=== PATIENT | female | born 1950 | race Two or more races ===

== ENCOUNTER 2017-04-13 22:31 | Emergency (ER) | payer MEDICAID, MEDICARE ==
[~2017-04-13] VITALS: Ht 162.6 cm; Wt 104.3 kg
[2017-04-13 23:32] LABS: Basophils # (auto) 0.1 uL; Basophils % (auto) 0.6 % (0.0-2.0); Eosinophils # (auto) 0.2 uL; Eosinophils % (auto) 2.2 % (0.0-7.0); Hematocrit 40.6 % (36.0-46.0); Hemoglobin 13.6 g/dL (12.2-16.2); Lymphocytes # (auto) 3.5 uL; Lymphocytes % (auto) 38.1 % (10.0-50.0); Mean Corpuscular Hemoglobin 28.7 pg (28.0-32.0); Mean Corpuscular Hgb Conc. 33.4 g/dL (32.0-36.0); Mean Platelet Volume 7.1 fL (7.4-10.4); Monocytes # (auto) 0.7 uL; Monocytes % (auto) 7.2 % (0.0-12.0); Neutrophils # (auto) 4.7 uL; Neutrophils % (auto) 51.9 % (37.0-80.0); Platelet Count (auto) 308 10^3/uL (140-450); Red Cell Distribution Width 13.6 % (11.6-16.0); White Blood Cell 9.2 10^3/uL (4.4-10.8)
[2017-04-13 23:51] LABS: Albumin 3.1 g/dL (3.4-5.0); Anion Gap 11 (5-15); Aspartate Aminotransferase 27 U/L (15-37); BUN/Creatinine Ratio 10.2; Blood Urea Nitrogen 9 mg/dL (7-18); Calcium 8.4 mg/dL (8.5-10.1); Carbon Dioxide 25 mmol/L (21-32); Chloride 106 mmol/L (98-107); GFR African American 83 mL/min; GFR Non-African American 68 mL/min; Glucose 146 mg/dL (74-106); Magnesium 2.1 mg/dL (1.6-2.6); Potassium 3.8 mmol/L (3.5-5.1); Sodium 142 mmol/L (136-145)
[2017-04-13 23:56] LABS: Alkaline Phosphatase 93 U/L (45-117); Bilirubin, Total 0.5 mg/dL (0.2-1.0); Total Protein 7.6 g/dL (6.4-8.2)
[2017-04-14 00:14] LABS: B-Type Natriuretic Peptide 6.58 pg/mL (0-100)
[2017-04-14 00:16] LABS: Temperature: 23.3 C (20.0-25.0)
[2017-04-14 05:38] LABS: Urine Bilirubin Negative (Negative); Urine Blood Negative /uL (Negative); Urine Color Yellow (Yellow); Urine Glucose Normal (Normal); Urine Ketone Negative (Negative); Urine Mucus FEW (None Seen); Urine Nitrite Negative (Negative); Urine RBC <1 /hpf (0 - 4); Urine Squamous Epithelial Cell FEW /hpf (<5); Urine Urobilinogen Normal (Negative)
[2017-04-14 09:45] VITALS: BP 137/74
== END 2017-04-14 09:58 | disposition home or self-care (01) ==
LOC: ER 22:31
DX: N39.0 Urinary tract infection, site not specified (principal)
CPT/HCPCS: 36415; 71020; 74176; 80053; 81001; 83690; 83735; 83880; 84484; 85025; 93005

== ENCOUNTER 2018-02-11 21:53 | Emergency (ER) | payer MEDICARE ==
[~2018-02-11] VITALS: Ht 162.6 cm; Wt 98.0 kg
[2018-02-11 23:43] LABS: Urine Bacteria FEW /hpf (None Seen); Urine Blood Negative /uL (Negative); Urine Mucus FEW (None Seen); Urine Specific Gravity 1.008 (1.001-1.035); Urine WBC 48 /hpf (0 - 5)
[2018-02-11 23:54] LABS: Basophils # (auto) 0.1 uL; Basophils % (auto) 1.3 % (0.0-2.0); Eosinophils # (auto) 0.1 uL; Eosinophils % (auto) 1.4 % (0.0-7.0); Lymphocytes # (auto) 3.3 uL; Lymphocytes % (auto) 30.5 % (10.0-50.0); Mean Corpuscular Hemoglobin 29.8 pg (28.0-32.0); Mean Corpuscular Volume 87.5 fL (80.0-100.0); Monocytes # (auto) 0.6 uL; Monocytes % (auto) 5.9 % (0.0-12.0); Neutrophils # (auto) 6.7 uL; Neutrophils % (auto) 60.9 % (37.0-80.0); Nucleated Red Blood Cells % 0.1 %; Platelet Count (auto) 253 10^3/uL (140-450); Red Blood Cells 4.69 10^6/uL (4.0-5.20); Red Cell Distribution Width 14.4 % (11.8-14.3); White Blood Cell 10.9 10^3/uL (4.4-10.8)
[2018-02-12 00:10] LABS: Albumin 3.6 g/dL (3.4-5.0); BUN/Creatinine Ratio 16.7; Calcium 8.7 mg/dL (8.5-10.1); Potassium 3.8 mmol/L (3.5-5.1)
[2018-02-12 00:13] LABS: Bilirubin, Total 0.7 mg/dL (0.2-1.0); Total Protein 7.4 g/dL (6.4-8.2)
[2018-02-12] MEDS ORDERED: cefTRIAXone W LIDOCAINE 1 GM IM IM ONE (07:15)
[2018-02-12 07:32] VITALS: BP 137/68
== END 2018-02-12 08:19 | disposition home or self-care (01) ==
LOC: ER 21:53
DX: N39.0 Urinary tract infection, site not specified (principal)
CPT/HCPCS: 36415; 74176; 80053; 81001; 82150; 83690; 85025; 96372; 99285; J0696

== ENCOUNTER 2018-03-09 11:39 | Emergency (ER) | payer OTHER, MEDICAID ==
[~2018-03-09] VITALS: Ht 162.6 cm; Wt 97.1 kg
[2018-03-09 13:08] VITALS: BP 150/77
== END 2018-03-09 13:43 | disposition home or self-care (01) ==
LOC: ER 11:39
DX: J02.9 Acute pharyngitis, unspecified (principal); J06.9 Acute upper respiratory infection, unspecified

== ENCOUNTER 2020-08-20 21:56 | Emergency (ER) | payer OTHER, MEDICAID ==
[~2020-08-20] VITALS: Ht 162.6 cm; Wt 94.3 kg
[2020-08-20 22:14] VITALS: BP 153/86
== END 2020-08-20 23:55 | disposition home or self-care (01) ==
LOC: ER 21:58
DX: N39.0 Urinary tract infection, site not specified (principal); E66.9 Obesity, unspecified; Z48.01 Encounter for change or removal of surgical wound dressing; Z68.35 Body mass index [BMI] 35.0-35.9, adult

== ENCOUNTER 2023-09-08 16:17 | Emergency (ER) | payer OTHER, MEDICAID ==
[~2023-09-08] VITALS: Ht 162.6 cm; Wt 83.2 kg
[2023-09-08] MEDS ORDERED: FLUORESCEIN SOD OPTH TEST STRIP OP ONE (17:00)
[2023-09-08] MEDS ORDERED: TETRACAINE HCL 0.5% OPTH(EYE) SOLN 4ML LEFTEYE ONE (17:00)
[2023-09-08 17:10] VITALS: BP 154/67; PULSE 78; RESP 18; TEMP 97.7; O2SAT 97
[2023-09-08] MEDS ORDERED: TOB03OS OP (17:40)
== END 2023-09-08 18:04 | disposition home or self-care (01) ==
LOC: ER 16:17
DX: S05.01XA Injury of conjunctiva and corneal abrasion without foreign body, right eye, initial encounter (principal); W18.39XA Other fall on same level, initial encounter; Y93.89 Activity, other specified; Y92.89 Other specified places as the place of occurrence of the external cause; Y99.8 Other external cause status

== ENCOUNTER 2024-10-23 15:03 | Emergency (ER) | payer OTHER, MEDICAID ==
[~2024-10-23] VITALS: Ht 162.6 cm; Wt 81.3 kg
[~2024-10-23 15:03] MED LIST: TOB03OS OP
--- NOTE | 2024-10-23 15:17 | ED.PDOC ---
History of Present Illness HPI Comments RIGHT THUMB PAIN, SWELLING Chief Complaint: pt reports she woke up with right thumb swollen, tender, denies any injuries Time Seen by MD: 15:11 Primary Care Provider: unknown Reviewed Notes: Nurses Notes Allergies: Coded Allergies: NO KNOWN ALLERGIES (Unverified , 02/19/16) Home Meds Active Scripts Tobramycin Sulfate (Tobrex) [address], 2 DROP OP QID, #5 ML Prov:BLANCHE REYNA 09/08/23 Information Source: Patient Mode of Arrival: Ambulatory Severity: Moderate Timing: Days Duration: Since onset Location: right thumb Quality pain Associated signs and symptoms swelling, redness Past Medical History PAST MEDICAL HISTORY: Gallstones Surgical History: Cholecystectomy, Denies all surgeries ELEVATOR INSTALLER APPRENTICE History: No Pertinent ELEVATOR INSTALLER APPRENTICE History Family History Family History: Reviewed,noncontributory to illness Social History Smoker: Non-Smoker Alcohol: Denies ETOH Use Drugs: Denies Drug Use Lives In: Home Musculoskeletal: reports: joint swelling (right thumb) Integumetry: reports: rash (right thumb red, swollen, tender) Physical Exam General Appearance: No Apparent Distress, Normal HEENT: Normal ENT Inspection, Pharynx Normal, TMs Normal Neck: Full Range of Motion, Non-Tender, Normal, Normal Inspection Respiratory: Chest Non-Tender, Lungs Clear, No Accessory Muscle Use, No Respiratory Distress, Normal Breath Sounds Cardiovascular: No Edema, No JVD, No Murmur, No Gallop, Normal Peripheral Pulses, Regular Rate/Rhythm Breast Exam: Deferred Gastrointestinal: No Organomegaly, Non Tender, No Pulsatile Mass, Normal Bowel Sounds, Soft Genitalia: Deferred Pelvic: Deferred Rectal: Deferred Extremities: No calf tenderness, Normal capillary refill, Normal inspection, Normal range of motion, Non-tender, No pedal edema, Swelling, Tender Musculoskeletal : Apperance: Normal Neurologic: Alert, soils technician II-XII nml as Tested, No Motor Deficits, Normal Affect, Normal Mood, No Sensory Deficits Cerebellar Function: Normal Reflexes: Normal Skin: Dry, Normal Color, Warm Lymphatic: No Adenopathy Was a procedure done? Was a procedure done?: No Differential Dx Considerations may include: felon, tyrel, finger fracture, finger dislocation, finger st FB, abscess, cellulitis X-Ray, Labs, Meds, VS Vital Signs Date Time Temp Pulse Resp B/P (MAP) Pulse Ox O2 Delivery O2 Flow Rate FiO2 10/23/24 15:34 97.8 106 18 103/51 (68) 96 Time of 1ST Reevaluation: 18:50 Reevaluation 1ST: Unchanged Patient Education/Counseling: Diagnosis, Treatment, Prognosis, Need For Follow Up Family Education/Counseling: No Family Present Additional Information pt has what appears to be drake. herpetic witlow cannot be excluded. there are no FB or antonia destructions or injuries. i will start her on acyclovir and keflex Departure 1 Departure Time of Disposition: 18:50 Impression: Primary Impression: Drake Additional Impression: Tyrel Disposition: HOME / SELF CARE / HOMELESS Condition: Good e-Prescriptions Ibuprofen Micronized (MOTRIN TABLET) 600 Mg Tb 600 MG PO TID PRN, #40 TAB *Black box warning-NSAIDS can increase risk of MO & hypertension, GI irritation, ulceration, bleed, perferation. Do not use post cardiac surgery. Use short duration/lowest effective dose. Prov: LISE ARGUELLO MD 10/23/24 Acyclovir (ZOVIRAX TABLET) 400 Mg Tb 1 TAB PO QID for 7 Days, #28 TAB 3 Refills Prov: LISE ARGUELLO MD 10/23/24 Cephalexin Monohydrate (Cephalexin) 500 Mg Tab 500 MG PO QID for 7 Days, #28 TAB Prov: LISE ARGUELLO MD 10/23/24 Discharged With: Self Critical Care Note Critical Care Time?: No Stability Stability form required: No LISE ARGUELLO MD Oct 23, 2024 15:17
--- NOTE | 2024-10-23 16:09 | DVH ---
EXAM: XY R 1ST FINGER XRAY CLINICAL HISTORY: THUMB PAIN COMPARISON: None TECHNIQUE: XY R 1ST FINGER XRAY Findings/Impression: 3 views of the right hand. There is no evidence of an acute fracture, dislocation, blastic, or lytic lesions. Mild degenerative changes of the DIP, PIP, and 1st carpal metacarpal joints. No radiopaque foreign bodies. No superficial soft tissue abnormalities.
[2024-10-23] MEDS ORDERED: IBU600T PO (18:53)
[2024-10-23] MEDS ORDERED: ACYC400T16 PO (18:53)
[2024-10-23] MEDS ORDERED: CEPH500T PO (18:53)
[2024-10-23 20:16] VITALS: BP 132/62; PULSE 87; RESP 16; TEMP 99; O2SAT 99
[2024-10-23] MEDS: CEPHALEXIN 250 MG CAP PO ONE (20:28)
[2024-10-23] MEDS: HYDROcodone-ACET 5/325MG TAB PO ONE (20:30)
== END 2024-10-23 20:35 | disposition home or self-care (01) ==
LOC: ER 15:03
DX: L03.011 Cellulitis of right finger (principal); M19.041 Primary osteoarthritis, right hand; Z90.49 Acquired absence of other specified parts of digestive tract
CPT/HCPCS: 73140